=== PATIENT | female | born 1960 | race African-American/Black ===

== ENCOUNTER 2019-08-27 10:43 | Emergency (ER) | payer MEDICAID, OTHER ==
[~2019-08-27] VITALS: Ht 160 cm; Wt 75.0 kg
[2019-08-27] MEDS: HYDROCODONE/ACETAMINOPHEN 5/325MG TABLET PO ONE ×3 (11:27→12:21)
[2019-08-27] MEDS ORDERED: ONDANSETRON 4MG ODT PO ONE (11:30)
[2019-08-27] MEDS ORDERED: MUPIROCIN 2% OINT 22GM NS STA (12:19)
[2019-08-27 14:08] VITALS: BP 140/88
== END 2019-08-27 14:10 | disposition home or self-care (01) ==
LOC: ER 11:22
DX: S92.344A Nondisplaced fracture of fourth metatarsal bone, right foot, initial encounter for closed fracture (principal); S90.01XA Contusion of right ankle, initial encounter; S70.02XA Contusion of left hip, initial encounter; S60.415A Abrasion of left ring finger, initial encounter; S80.211A Abrasion, right knee, initial encounter; I10 Essential (primary) hypertension; V03.10XA Pedestrian on foot injured in collision with car, pick-up truck or van in traffic accident, initial encounter; Y93.01 Activity, walking, marching and hiking; Y92.488 Other paved roadways as the place of occurrence of the external cause
CPT/HCPCS: 29515; 73140; 73502; 73562; 73610; 73630; 99283; Q0162

== ENCOUNTER 2019-11-03 08:45 | Emergency (ER) | payer MEDICAID, OTHER ==
[~2019-11-03] VITALS: Ht 167.6 cm; Wt 86.0 kg
[2019-11-03] MEDS ORDERED: IBUPROFEN 600MG TABLET PO STA (09:26)
[2019-11-03 10:31] LABS: CLARITY URINE CLOUDY (CLEAR); COLOR URINE YELLOW (YELLOW); KETONES URINE NEGATIVE (NEGATIVE); LEUKOCYTE ESTERASE URINE TRACE (NEGATIVE); NITRITE URINE POSITIVE (NEGATIVE); OCCULT BLOOD URINE TRACE (NEGATIVE); PROTEIN URINE 1+ (NEGATIVE); SPECIFIC GRAVITY URINE 1.023 (1.005-1.030)
[2019-11-03 10:59] VITALS: BP 122/74
== END 2019-11-03 11:52 | disposition home or self-care (01) ==
LOC: ER 08:45
DX: J06.9 Acute upper respiratory infection, unspecified (principal); N39.0 Urinary tract infection, site not specified
CPT/HCPCS: 81003; 99283; Z7610